=== PATIENT | female | born 1990 | race Caucasian/White ===

== ENCOUNTER 2017-09-06 20:07 | Emergency (ER) | payer MEDICAID ==
[~2017-09-06] VITALS: Ht 149.9 cm; Wt 90.7 kg
[2017-09-06 20:15] VITALS: BP 130/84
== END 2017-09-06 21:34 | disposition left against medical advice (07) ==
LOC: EDUNIT# 20:07 → EDBD 20:07 → ER 20:13
DX: R07.9 Chest pain, unspecified (principal); Z53.21 Procedure and treatment not carried out due to patient leaving prior to being seen by health care provider